=== PATIENT | male | born 1970 | race Caucasian/White ===

== ENCOUNTER 2016-07-17 21:27 | Emergency (ER) | payer OTHER ==
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
[2016-07-17 22:49] LABS: COLOR PALE YELLOW; LEUKOCYTE ESTERASE,URINE NEGATIVE (NEGATIVE); NITRITE,URINE NEGATIVE (NEGATIVE)
[2016-07-17 22:53] LABS: % IMMATURE GRANULYOCYTES 0.3 % (0.0-1.1); ABSOLUTE IMMATURE GRANULOCYTES 0.01 10^3/uL (0.00-0.10); ADD DIFF? NO; ADD MORPH? NO; ATYPICAL LYMPHOCYTE FLAG 30 (0-99); FRAGMENT RBC FLAG 0 (0-99); HEMOGLOBIN 11.6 g/dL (13.7-17.5); LEFT SHIFT FLG 0 (0-99); LIPEMIA HEMOLYSIS FLAG 90 (0-99); MEAN CELL HEMOGLOBIN 30.8 pg (27.9-34.1); MEAN CELL HEMOGLOBIN CONCENTR. 35.2 g/dL (32.4-36.7); MEAN CELL VOLUME 87.5 fL (81.5-99.8); MEAN PLATELET VOLUME 11.2 fL (8.7-11.7); PLATELET CLUMPS FLAG 20 (0-99); RED BLOOD CELL COUNT 3.77 10^6/uL (4.40-6.38); RED CELL DISTRIBUTION WIDTH 16.6 % (11.5-15.2)
[2016-07-17 22:55] LABS: PLATELET COUNT 43 10^3/uL (150-400)
[2016-07-17 22:59] LABS: APTT 37.2 SEC (23.0-38.0); INR 1.55 (0.83-1.16); PROTIME(PATIENT) 18.6 SEC (12.0-15.0)
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
[2016-07-17 23:03] LABS: ALANINE AMINOTRANSFERASE 29 IU/L (21-72); ALBUMIN 3.4 g/dL (3.5-5.0); ALKALINE PHOSPHATASE 83 IU/L (38-126); ANION GAP 9 mEq/L (8-16); ASPARTATE AMINOTRANSFERASE 39 IU/L (17-59); BILIRUBIN,TOTAL 1.8 mg/dL (0.1-1.4); CALCIUM 8.7 mg/dL (8.5-10.4); CARBON DIOXIDE 26 mEq/l (22-31); CHLORIDE 101 mEq/L (97-110); CREATININE 0.7 mg/dL (0.7-1.3); GLOMERULAR FILTRATION RATE > 60; GLUCOSE 97 mg/dL (70-100); POTASSIUM 3.9 mEq/L (3.5-5.2); SODIUM 136 mEq/L (134-144); TOTAL PROTEIN 6.9 g/dL (6.3-8.2)
[2016-07-17 23:27] LABS: ADD SCAN? NO
[2016-07-17 23:28] LABS: PLATELET ESTIMATE DECREASED (ADEQ)
[2016-07-17] MEDS ORDERED: FUROSEMIDE 40 MG/4 ML VIAL IVP ONE (23:38)
[2016-07-17] MEDS ORDERED: LORazepam 2 MG/ML INJ IVP ONE (23:39)
[2016-07-18 02:02] VITALS: BP 127/92; PULSE 60; RESP 12; TEMP 98.2; O2SAT 96
== END 2016-07-18 02:01 | disposition home or self-care (01) ==
DX: E87.70 Fluid overload, unspecified (principal); K72.90 Hepatic failure, unspecified without coma; F17.200 Nicotine dependence, unspecified, uncomplicated
CPT/HCPCS: 96374; J2060

== ENCOUNTER → 2016-09-28 | Outpatient (CLI) | payer OTHER ==
[~2016-09-28] MED LIST: IOPAMIDOL (ISOVUE-300) 100 ML BTL ONE
== END ==
LOC: FIMAGING 08:10
PROVIDERS: ATTEND Surgery
DX: L02.211 Cutaneous abscess of abdominal wall (principal)
CPT/HCPCS: Q9967

== ENCOUNTER 2016-12-07 17:29 | Emergency (ER) | payer OTHER ==
[2016-12-07 17:54] VITALS: RESP 16
--- NOTE | 2016-12-07 18:11 | EDPHY ---
General - History Smoking Status: Current every day smoker Time Seen by Provider: 12/07/16 17:53 Narrative: CHIEF COMPLAINT: Left simmons laceration HISTORY OF PRESENT ILLNESS: Patient was walking in his house when he tripped on a coffee table, slicing the left simmons. This was a moderately to severely painful laceration. This just happened within the past 2 hours. Difficulty walking on due to pain. There was a moderate amount of bleeding, which she attributes to his end-stage liver disease. No numbness or tingling distally. No injury elsewhere. Minimal improvement rest. Tetanus was last updated less than 5 years ago. No other associated complaints or modifying factors. Expresses concern as he has poor clotting factor due to cirrhosis. 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 Lives independently with his spouse FAMILY HISTORY: Noncontributory EXAMINATION General Appearance: Alert, no distress Head: normocephalic, atraumatic Eyes: Pupils equal and round, no conjunctival pallor. Scleral icterus ENT, Mouth: Mucous membranes moist Neck: Normal inspection, supple, non-tender Respiratory: No retractions or distress. Cardiovascular: Regular rate. Pulses intact distally. Symmetric DP and PT pulses 2+ Neurological: A&O, nonfocal. Strength symmetric Skin: Warm and dry, no rash. Chronic healing wound of the lower abdomen from a laparotomy incision. Extensive laceration to the left anterior simmons. This is 15 cm, curvilinear. Exposure of the anterior compartment without compromise of the fascia or muscle belly. No tendon injury. No foreign body. Neurovascular intact distally. Extremities: Tenderness over the area of laceration. Range of motion intact symmetrically without deficit. Neurovascular intact distal to the laceration. All compartments are soft. Psychiatric: Mood and affect normal DIFFERENTIAL DIAGNOSES: Including but not limited to laceration, complex laceration, coagulopathy MDM: 6:23 p.m. Left anterior simmons laceration from a coffee table. This is extensive laceration , measuring nearly 15 cm. There are exposure of the anterior compartment but no compromise. I have anesthetize the area. X-ray was ordered. Copious irrigation and closure. 7:50 p.m.. Extremely complicated laceration of the left anterior simmons. Two-layer closure without complication. No foreign body. No fracture. Neurovascular intact pre and postprocedure. No arterial injury. No tendon injury. Patient has complicated history due to his end-stage liver disease with delayed healing. He is already being seen a chronic, nonhealing wound of the abdomen by general surgeon. I stressed the importance of close follow up with either the general surgeon or his primary care physician to monitor the healing of this laceration given his scenario. He voices understanding of this. Additionally I will place him on Augmentin prophylaxis. I would like him to be followed closely with wound check in 48 hours. ED precautions discussed. Minimal weight- bearing on the left lower extremity. He is comfortable with this plan and discharged home stable condition with his spouse. PROCEDURE: Laceration repair Consent: Verbal Location: Left anterior simmons Length of repair: 15 cm Complexity: Complex, total suture time 60 minutes Layer involvement: 2 Layer Anesthesia: Local, 1% lidocaine with epinephrine, 15 mL Irrigation: Extensive Debridement: None Procedure description: Following good anesthesia, the wound was copiously irrigated. Wound bed was explored and there is no foreign body noted. Wound borders were approximated well with good hemostasis. Tolerated well without complication. Suture/Staple material: Subcutaneous layer: 8 simple interrupted sutures with 5-0 Vicryl. Dermal layer: 4-0 Prolene, 20 horizontal mattress sutures Wound care: Routine as discussed Suture/Staple removal: 10-14 Days SUPERVISION: This patient was independently evaluated without direct examination by the attending physician. Case was discussed with attending physician. (Jay Liz ) The patient was evaluated and managed by the physician assistant family teacher. I have reviewed this chart and I agree with the findings and plan of care as documented , as indicated by my signature. I am the secondary supervising physician. ( Hannah Chavez) - Objective Vital Signs: Initial Vital Signs Temperature (C) 36.8 C 12/07/16 17:35 Heart Rate 94 12/07/16 17:35 Respiratory Rate 16 12/07/16 17:35 Blood Pressure 110/82 H 12/07/16 17:35 O2 Sat (%) 94 12/07/16 17:35 O2 Delivery Mode Room Air Allergies/Adverse Reactions: bupropion HCl [From Wellbutrin] Allergy (Intermediate, Verified 12/07/16 17:32) Anxiety cefaclor [From Ceclor] Allergy (Intermediate, Verified 12/07/16 17:32) Hives Home Medications: Medication Instructions Recorded QUEtiapine FUMARATE [Seroquel 50 100 mg PO HS #30 tab 12/04/15 mg (*)] Rifaximin [Xifaxan] 550 mg PO BID #60 tab 12/04/15 Spironolactone [Aldactone 100 MG 100 mg PO DAILY #30 tab 12/04/15 (*)] Cyanocobalamin [Vitamin B12 1,000 mcg IM Q28D 12/15/15 1000MCG/ML (*)] Testosterone 1.25 g TP DAILY 12/15/15 Citalopram Hydrobromide [Celexa] 40 mg PO DAILY 02/15/16 Furosemide [Lasix 80 MG (*)] 80 mg PO DAILY 02/15/16 Gabapentin [Neurontin 300 MG (*)] 300 mg PO HS 02/15/16 Lactulose [Cephulac 20 gm/30 ml 10 gm PO DAILY 02/15/16 oral soln (*)] Potassium Cl [Klor-Con 10 meq (RX)] 10 meq PO DAILY 02/15/16 Varenicline Tartrate [Chantix 1MG 1 mg PO DAILY 02/15/16 (*)] Amoxicillin/Clavulanate Pot 875 mg PO BID #20 tab 12/07/16 [Augmentin 875 MG TAB (*)] Medications Given: Discontinued Medications Amoxicillin/Clavulanate Potassium (Augmentin 875mg) 875 mg PO EDNOW ONE PRN Reason: Protocol Stop: 12/07/16 20:03 Last Admin: 12/07/16 20:34 Dose: 875 mg Departure - Departure Disposition: Home, Routine, Self-Care Clinical Impression: Laceration of lower leg, complicated Condition: Good Instructions: Care For Your Stitches (ED), Laceration (ED) Additional Instructions: 1. Wound care as discussed daily 2. Wound check with primary care physician or general surgeon 48 hours 3. ED precautions as discussed 4. Augmentin as prescribed to completion Referrals: NOT,SURE [Other] - As per Instructions Sharifa Drummond MD [Medical Doctor] - As per Instructions Prescriptions: Amoxicillin/Clavulanate Pot [Augmentin 875 MG TAB (*)] 875 mg PO BID #20 tab
[2016-12-07] MEDS ORDERED: AMOXICILLIN/CLAVULANATE POT 875/125 MG TAB PO ONE (20:02)
[2016-12-07 20:35] VITALS: BP 110/69; PULSE 79; TEMP 98.4; O2SAT 95
== END 2016-12-07 20:30 | disposition home or self-care (01) ==
PROC: 0HQLXZZ Repair Left Lower Leg Skin, External Approach (ICD-10-PCS; principal; 2016-12-07)
DX: S81.812A Laceration without foreign body, left lower leg, initial encounter (principal); F17.200 Nicotine dependence, unspecified, uncomplicated; W18.49XA Other slipping, tripping and stumbling without falling, initial encounter; Y92.009 Unspecified place in unspecified non-institutional (private) residence as the place of occurrence of the external cause; Y99.8 Other external cause status; Y93.01 Activity, walking, marching and hiking

== ENCOUNTER 2016-12-14 19:54 | Inpatient (IN) | payer OTHER ==
[2016-12-14] MEDS ORDERED: VANCOMYCIN HCL/NORMAL SALINE 250 ML IV ONE (20:22)
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
[2016-12-14] MEDS ORDERED: IBUPROFEN 200 MG TAB PO PRN (21:26)
[2016-12-14] MEDS ORDERED: ACETAMINOPHEN 325 MG TAB PO PRN (21:26)
[2016-12-14] MEDS ORDERED: ONDANSETRON DISINTEGRATING 4 MG TAB PO PRN (21:26)
[2016-12-14] MEDS ORDERED: ONDANSETRON 4 MG/2 ML VIAL IVP PRN (21:26)
[2016-12-14 21:36] LABS: % IMMATURE GRANULYOCYTES 0.5 % (0.0-1.1); ABSOLUTE IMMATURE GRANULOCYTES 0.02 10^3/uL (0.00-0.10); ADD DIFF? NO; ADD MORPH? NO; ADD SCAN? NO; ATYPICAL LYMPHOCYTE FLAG 30 (0-99); FRAGMENT RBC FLAG 20 (0-99); HEMATOCRIT 33.9 % (40.0-51.0); HEMOGLOBIN 11.9 g/dL (13.7-17.5); LEFT SHIFT FLG 0 (0-99); LIPEMIA HEMOLYSIS FLAG 90 (0-99); MEAN CELL HEMOGLOBIN 30.4 pg (27.9-34.1); MEAN CELL HEMOGLOBIN CONCENTR. 35.1 g/dL (32.4-36.7); MEAN CELL VOLUME 86.5 fL (81.5-99.8); MEAN PLATELET VOLUME 10.1 fL (8.7-11.7); PLATELET CLUMPS FLAG 0 (0-99); PLATELET COUNT 53 10^3/uL (150-400); RED BLOOD CELL COUNT 3.92 10^6/uL (4.40-6.38); RED CELL DISTRIBUTION WIDTH 14.9 % (11.5-15.2)
[2016-12-14 21:45] LABS: ANION GAP 9 mEq/L (8-16); BILIRUBIN,TOTAL 1.4 mg/dL (0.1-1.4); CALCIUM 8.8 mg/dL (8.5-10.4); CARBON DIOXIDE 28 mEq/l (22-31); CHLORIDE 94 mEq/L (97-110); CREATININE 1.1 mg/dL (0.7-1.3); GLOMERULAR FILTRATION RATE > 60; GLUCOSE 97 mg/dL (70-100); INR 1.49 (0.83-1.16); POTASSIUM 4.2 mEq/L (3.5-5.2); SODIUM 131 mEq/L (134-144)
[2016-12-14 21:46] LABS: APTT 36.5 SEC (23.0-38.0)
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
[2016-12-15] MEDS: OXYCODONE/APAP 5/325 TAB PO PRN ×4 (00:09→14:16)
[2016-12-15 05:21] LABS: ADD DIFF? NO; ADD MORPH? NO; ADD SCAN? NO; ATYPICAL LYMPHOCYTE FLAG 40 (0-99); FRAGMENT RBC FLAG 0 (0-99); HEMATOCRIT 33.4 % (40.0-51.0); HEMOGLOBIN 11.6 g/dL (13.7-17.5); LEFT SHIFT FLG 0 (0-99); LIPEMIA HEMOLYSIS FLAG 90 (0-99); MEAN CELL HEMOGLOBIN 30.4 pg (27.9-34.1); MEAN CELL HEMOGLOBIN CONCENTR. 34.7 g/dL (32.4-36.7); MEAN CELL VOLUME 87.7 fL (81.5-99.8); MEAN PLATELET VOLUME 11.2 fL (8.7-11.7); PLATELET CLUMPS FLAG 0 (0-99); RED BLOOD CELL COUNT 3.81 10^6/uL (4.40-6.38); RED CELL DISTRIBUTION WIDTH 14.8 % (11.5-15.2)
[2016-12-15 05:26] LABS: PLATELET COUNT 42 10^3/uL (150-400)
[2016-12-15 06:07] LABS: PLATELET ESTIMATE DECREASED (ADEQ)
[2016-12-15] MEDS ORDERED: hydrOXYzine HCL 25 MG TAB PO PRN (07:46)
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
[2016-12-15] MEDS ORDERED: ENOXAPARIN 40 MG/0.4 ML SYR SC SCH (09:00)
[2016-12-15] MEDS: RIFAXIMIN 550 MG TAB PO SCH ×2 (10:23→20:52)
[2016-12-15] MEDS: VARENICLINE TARTRATE 1 MG TAB PO SCH (10:23)
[2016-12-15] MEDS: POTASSIUM CL 10 MEQ TAB PO SCH (10:23)
[2016-12-15] MEDS: GABAPENTIN 300 MG CAP PO SCH ×3 (10:23→20:52)
[2016-12-15] MEDS: FUROSEMIDE 40 MG TAB PO SCH (10:23)
[2016-12-15] MEDS: LACTULOSE 20 GM/30 ML UDCUP PO SCH (10:24)
[2016-12-15] MEDS: VANCOMYCIN 1.25 GM in D5W 250 ML IV SCH ×2 (10:24→21:05)
[2016-12-15] MEDS: TESTOSTERONE 1.25 GM TP SCH (12:47)
--- NOTE | 2016-12-15 18:19 | ASMTCASEMG ---
Living Arrangements What is your living Answers: With Spouse arrangement? Who do you live with? Discharge Plan Comments Coordination Status Comments Notes: Pt here w/cellulitis, hx of narcotic abuse, has current Suboxone prescription, PT/OT to [facility] w/f. Date Signed: 12/15/2016 06:18 PM Electronically Signed By:Shy Jolley
[2016-12-15] MEDS: SUBOXONE SL SCH (18:28)
[2016-12-15] MEDS ORDERED: QUEtiapine FUMARATE 50 MG TAB PO SCH (21:00)
[2016-12-15] MEDS ORDERED: CITALOPRAM 20 MG TAB PO SCH (21:00)
[2016-12-15] MEDS ORDERED: SPIRONOLACTONE 100 MG TAB PO SCH (21:00)
[2016-12-15] MEDS ORDERED: traZODone 50 MG TAB PO SCH (21:00)
[2016-12-16] MEDS: RIFAXIMIN 550 MG TAB PO SCH (08:07)
[2016-12-16] MEDS: FUROSEMIDE 40 MG TAB PO SCH (08:08)
[2016-12-16] MEDS: POTASSIUM CL 10 MEQ TAB PO SCH (08:08)
[2016-12-16] MEDS: LACTULOSE 20 GM/30 ML UDCUP PO SCH ×2 (08:08→08:49)
[2016-12-16] MEDS: GABAPENTIN 300 MG CAP PO SCH (08:08)
[2016-12-16] MEDS: VARENICLINE TARTRATE 1 MG TAB PO SCH (08:08)
[2016-12-16] MEDS: SUBOXONE SL SCH (08:15)
[2016-12-16] MEDS: TESTOSTERONE 1.25 GM TP SCH (08:49)
[2016-12-16] MEDS: VANCOMYCIN 1.25 GM in D5W 250 ML IV SCH (09:51)
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
--- NOTE | 2016-12-16 12:17 | ASDISCHSUM ---
Discharge Information Plan Status:Home with No Needs Medically Cleared to Leave: Discharge Date: CM D/C Disposition:Home, Routine, Self-Care ADT D/C Disposition: Projected Discharge Date: Transportation at D/C:Family Discharge Delay Reason: Follow-Up Date: Discharge Slot: Final Diagnosis: Placement Information Patient Contact Information Contact Name:DORIS Relationship: Address:[address] [place] [address] City:[place] Alternate Phone: State/Zip Code:[place] [address] Email: Financial Information Financial Class:HMO and PPO Plans Primary Plan Desc:[facility] Primary Plan Number:[id number] Secondary Plan Desc:MEDICARE INPATIENT Secondary Plan Number:[id number] Assessment Information [facility] Initial CM Assessment Living Arrangements What is your living Answers: With Spouse arrangement? Who do you live with? Discharge Plan Comments Coordination Status Comments Notes: Pt here w/cellulitis, hx of narcotic abuse, has current Suboxone prescription, PT/OT to [facility] w/f. Date Signed: 12/15/2016 06:18 PM Electronically Signed By:Shy Jolley Intervention Information
--- NOTE | 2016-12-16 12:18 | ASMTCMCOM ---
CM Note CM Note Notes: Pt. to d/c independently to his [facility] today at 14:00. SWer let hospitalist and bedside RN know. Date Signed: 12/16/2016 12:18 PM Electronically Signed By:Natalie Johnson
[2016-12-16 12:36] VITALS: BP 96/61; PULSE 73; RESP 18; TEMP 97.8; O2SAT 93
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
[2016-12-16] MEDS ORDERED: VANCOMYCIN HCL/NORMAL SALINE 250 ML IV SCH (21:00)
== END 2016-12-16 14:27 | disposition home or self-care (01) | DRG 872 ==
LOC: OBSVTOIN 20:43 → F3E 21:41
PROVIDERS: ADMIT Hospitalist; ATTEND Student in an Organized Health Care Education/Training Program
DX: A41.9 Sepsis, unspecified organism (principal); L03.116 Cellulitis of left lower limb; D69.59 Other secondary thrombocytopenia; S81.812D Laceration without foreign body, left lower leg, subsequent encounter; K70.30 Alcoholic cirrhosis of liver without ascites; F11.20 Opioid dependence, uncomplicated; G89.29 Other chronic pain; F17.210 Nicotine dependence, cigarettes, uncomplicated; K72.90 Hepatic failure, unspecified without coma; F10.21 Alcohol dependence, in remission; W22.03XD Walked into furniture, subsequent encounter; Z87.828 Personal history of other (healed) physical injury and trauma
CPT/HCPCS: 97161-GP; 97166-GO; G8978-GP-CI; G8979-GP-CI; G8980-GP-CI; G8987-GO-CI; G8988-GO-CI; G8989-GO-CI; J1650; J3370

== ENCOUNTER → 2017-01-25 | Outpatient (CLI) | payer OTHER | LOC: FIMAGING 07:46 | PROVIDERS: ATTEND Surgery | DX: L02.211 Cutaneous abscess of abdominal wall (principal); K74.60 Unspecified cirrhosis of liver; K80.20 Calculus of gallbladder without cholecystitis without obstruction | CPT/HCPCS: Q9967 ==

== ENCOUNTER → 2017-03-02 | Outpatient (CLI) | payer OTHER ==
[~2017-03-02] MED LIST changes: +IOPAMIDOL (ISOVUE 370) 100 ML BTL IV ONE; -IOPAMIDOL (ISOVUE-300) 100 ML BTL ONE
== END ==
LOC: FIMAGING 13:03
PROVIDERS: ATTEND Surgery
DX: K63.2 Fistula of intestine (principal)
CPT/HCPCS: 76000; Q9967

== ENCOUNTER 2017-03-12 17:18 | Inpatient (IN) | payer OTHER ==
[2017-03-12] MEDS ORDERED: ONDANSETRON 4 MG/2 ML VIAL IVP PRN (19:06)
[2017-03-12 20:15] LABS: INR 1.44 (0.83-1.16); PROTIME(PATIENT) 17.5 SEC (12.0-15.0)
[2017-03-12 20:16] LABS: APTT 38.7 SEC (23.0-38.0)
[2017-03-12 20:26] LABS: % IMMATURE GRANULYOCYTES 0.3 % (0.0-1.1); ABSOLUTE IMMATURE GRANULOCYTES 0.01 10^3/uL (0.00-0.10); ADD DIFF? NO; ADD MORPH? NO; ADD SCAN? NO; ATYPICAL LYMPHOCYTE FLAG 10 (0-99); FRAGMENT RBC FLAG 0 (0-99); HEMATOCRIT 31.9 % (40.0-51.0); HEMOGLOBIN 11.7 g/dL (13.7-17.5); LEFT SHIFT FLG 0 (0-99); LIPEMIA HEMOLYSIS FLAG 90 (0-99); MEAN CELL HEMOGLOBIN 31.2 pg (27.9-34.1); MEAN CELL HEMOGLOBIN CONCENTR. 36.7 g/dL (32.4-36.7); MEAN CELL VOLUME 85.1 fL (81.5-99.8); MEAN PLATELET VOLUME 11.4 fL (8.7-11.7); PLATELET CLUMPS FLAG 0 (0-99); RED BLOOD CELL COUNT 3.75 10^6/uL (4.40-6.38); RED CELL DISTRIBUTION WIDTH 15.4 % (11.5-15.2)
[2017-03-12 20:30] LABS: PLATELET COUNT 46 10^3/uL (150-400)
[2017-03-12 20:35] LABS: ALANINE AMINOTRANSFERASE 32 IU/L (21-72); ALBUMIN 2.9 g/dL (3.5-5.0); ALKALINE PHOSPHATASE 84 IU/L (38-126); ANION GAP 9 mEq/L (8-16); ASPARTATE AMINOTRANSFERASE 44 IU/L (17-59); BILIRUBIN,TOTAL 0.9 mg/dL (0.1-1.4); CALCIUM 8.5 mg/dL (8.5-10.4); CARBON DIOXIDE 26 mEq/l (22-31); CHLORIDE 97 mEq/L (97-110); GLOMERULAR FILTRATION RATE > 60; GLUCOSE 101 mg/dL (70-100); SODIUM 132 mEq/L (134-144); TOTAL PROTEIN 5.9 g/dL (6.3-8.2)
[2017-03-12] MEDS: ERTAPENEM 1 GM VIAL IVP SCH (20:54)
[2017-03-12] MEDS: D5W 1/2 NS W/ 20 KCl/L 1,000 ML IV SCH (20:54)
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
[2017-03-12 21:03] LABS: PLATELET ESTIMATE DECREASED (ADEQ)
[2017-03-12 22:28] LABS: PHENCYCLIDINE URINE BCH < 6 ng/ml (NEGATIVE); PHENCYCLIDINE URINE BCH NEGATIVE (NEGATIVE)
[2017-03-13 02:34] LABS: TETRAHYDROCANNABINOL URINE 201 ng/mL (NEGATIVE)
[2017-03-13] MEDS: HYDROmorphONE/DILAUDID 1 MG/ML INJ IVP PRN ×6 (04:44→23:55)
[2017-03-13] MEDS: D5W 1/2 NS W/ 20 KCl/L 1,000 ML IV SCH ×2 (07:50→23:55)
[2017-03-13] MEDS: ERTAPENEM 1 GM VIAL IVP SCH (09:04)
[2017-03-13] MEDS ORDERED: FLU VACC QS 2017-18 (3YR+)/PF 0.5 ML SYR (FLUARIX QUAD) IM ONE (10:09)
[2017-03-13] MEDS ORDERED: PNEUMOCOCCAL 0.5ML VACCINE VIAL IM ONE (10:09)
--- NOTE | 2017-03-13 12:14 | ASMTCMCOM ---
CM Note CM Note Notes: Chart reviewed. Patient admitted per Dr. Knight for abdominal drainage that is persistent . He was inpatient here in December and DC'd to home independently at that time. Questionable need for surgery. Needs to be determined as plan of care is not clear at this point. CM to follow. Date Signed: 03/13/2017 12:14 PM Electronically Signed By:Jovanna Betancourt RN
[2017-03-13] MEDS ORDERED: IOPAMIDOL (ISOVUE-300) 100 ML BTL ONE (13:26)
[2017-03-13] MEDS ORDERED: NICOTINE 21 MG/24 HR PATCH TD ONE (20:30)
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
[2017-03-14] MEDS: HYDROmorphONE/DILAUDID 1 MG/ML INJ IVP PRN ×2 (04:10→08:22)
[2017-03-14] MEDS: ERTAPENEM 1 GM VIAL IVP SCH (08:24)
[2017-03-14 08:29] VITALS: BP 106/65; PULSE 65; RESP 16; TEMP 97.9; O2SAT 93
[2017-03-14] MEDS ORDERED: IBUPROFEN 200 MG TAB PO PRN (09:29)
[2017-03-14] MEDS ORDERED: hydrOXYzine HCL 25 MG TAB PO PRN (09:29)
[2017-03-14] MEDS ORDERED: NICOTINE 21 MG/24 HR PATCH TD SCH (09:45)
--- NOTE | 2017-03-14 15:56 | ASDISCHSUM ---
Discharge Information Plan Status:Home with No Needs Medically Cleared to Leave:03/13/2017 Discharge Date:03/14/2017 02:07 PM D/C Disposition: ADT D/C Disposition:Home, Routine, Self-Care Projected Discharge Date:03/14/2017 12:00 AM Transportation at D/C: Discharge Delay Reason: Follow-Up Date:03/14/2017 12:00 AM Discharge Slot: Final Diagnosis: Placement Information Patient Contact Information Contact Name:DORIS Relationship: Address:[address] [place] [address] City:[place] Alternate Phone: [facility]/Zip Code:[place] [address] Email: Financial Information Financial Class: Primary Plan Desc:MEDICARE INPATIENT Primary Plan Number:[id number] Secondary Plan Desc:[facility] Secondary Plan Number:[id number] Assessment Information [facility] CM Progress Note CM Note CM Note Notes: Chart reviewed. Patient admitted per Dr. Knight for abdominal drainage that is persistent . He was inpatient here in December and DC'd to home independently at that time. Questionable need for surgery. Needs to be determined as plan of care is not clear at this point. CM to follow. Date Signed: 03/13/2017 12:14 PM Electronically Signed By:Jovanna Betancourt RN LACE LACE Length of stay for Answers: 1 day current admission Acuity / Level of Care Answers: No. Emergency dept visits in Answers: 1 last 6 months Score: 2 Date Signed: 03/13/2017 12:15 PM Electronically Signed By:Jovanna Betancourt RN Intervention Information Intervention Type:*JERNIGAN-Signed Date of Service:03/13/2017 01:15 PM Patient Type:Observation Staff Member:Sabine Nagy Hours: Discipline: Severity: Comment:
[2017-03-14] MEDS ORDERED: GABAPENTIN 300 MG CAP PO SCH (16:00)
[2017-03-14] MEDS ORDERED: BACLOFEN 10 MG TAB PO SCH (16:00)
[2017-03-14] MEDS ORDERED: SPIRONOLACTONE 100 MG TAB PO SCH (21:00)
[2017-03-14] MEDS ORDERED: traZODone 50 MG TAB PO SCH (21:00)
[2017-03-14] MEDS ORDERED: RIFAXIMIN 550 MG TAB PO SCH (21:00)
[2017-03-14] MEDS ORDERED: QUEtiapine FUMARATE 50 MG TAB PO SCH (21:00)
[2017-03-14] MEDS ORDERED: METHYLPHENIDATE HCL 30 MG PO SCH (21:00)
[2017-03-14] MEDS ORDERED: DULoxetine 60 MG CAP PO SCH (21:00)
[2017-03-15] MEDS ORDERED: LACTULOSE 20 GM/30 ML UDCUP PO SCH (09:00)
[2017-03-15] MEDS ORDERED: TESTOSTERONE 1.25 GM TP SCH (09:00)
[2017-03-15] MEDS ORDERED: POTASSIUM CL 10 MEQ TAB PO SCH (09:00)
[2017-03-15] MEDS ORDERED: FUROSEMIDE 40 MG TAB PO SCH (09:00)
== END 2017-03-14 14:07 | disposition home or self-care (01) | DRG 395 ==
LOC: F3E 17:22 → OBSVTOIN 03-14 09:06
PROVIDERS: ADMIT Surgery; ATTEND Surgery
DX: K63.2 Fistula of intestine (principal); K74.60 Unspecified cirrhosis of liver; Z23 Encounter for immunization
CPT/HCPCS: 80307; G0008; G0378; G0379; G0480; J1170; J1335; Q9967

== ENCOUNTER 2017-03-22 09:00 | Inpatient (IN) | payer OTHER ==
--- NOTE | 2017-03-22 06:49 | PDHPUP ---
History & Physical Update H&P update statement: This history and physical update is based on an assessment of the patient which was completed after admission or registration (within 24 hours), but prior to the surgery/procedure. updated
[~2017-03-22 09:00] MED LIST changes: +ERTAPENEM 1 GM VIAL IVP ONE; -IOPAMIDOL (ISOVUE 370) 100 ML BTL IV ONE
[2017-03-26] MEDS ORDERED: ERTAPENEM 1 GM VIAL IVP ONE ×2 (06:00→12:45)
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
[2017-03-26] MEDS ORDERED: HEPARIN 1000 UNIT/1 ML MDV ONE (11:31)
[2017-03-26] MEDS ORDERED: ceFAZolin 1 GM/5 ML SYR ONE (11:31)
[2017-03-26] MEDS ORDERED: BUPIVACAINE 0.5% 30 ML SDV ONE (11:31)
[2017-03-26] MEDS ORDERED: LIDOCAINE 1% 2 ML INJ ID PRN (12:28)
[2017-03-26] MEDS ORDERED: LR 1,000 ML IV ONE (12:28)
[2017-03-26] MEDS ORDERED: LIDOCAINE 1% 2 ML INJ ONE (12:34)
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
[2017-03-26] MEDS ORDERED: MIDAZOLAM 2 MG/2 ML VIAL IVP ONE (13:20)
[2017-03-26] MEDS ORDERED: MIDAZOLAM 2 MG/2 ML VIAL ONE (13:22)
[2017-03-26 13:23] LABS: INR 1.27 (0.83-1.16); PROTIME(PATIENT) 16.1 SEC (12.0-15.0)
[2017-03-26 13:24] LABS: APTT 33.8 SEC (23.0-38.0)
[2017-03-26] MEDS ORDERED: PROPOFOL 200 MG/20 ML VIAL ONE ×2 (13:24→14:32)
[2017-03-26] MEDS ORDERED: fentaNYL 250 MCG/5 ML INJ ONE (13:24)
[2017-03-26] MEDS ORDERED: ROCURONIUM 50 MG/5 ML VIAL ONE ×2 (13:26→14:19)
[2017-03-26] MEDS ORDERED: LIDOCAINE 2% 100 MG/5 ML SYR ONE (13:30)
[2017-03-26] MEDS ORDERED: HYDROmorphONE/DILAUDID 2 MG/ML INJ ONE (14:24)
[2017-03-26] MEDS ORDERED: KETAMINE 100 MG/10 ML SYR ONE (14:28)
[2017-03-26] MEDS ORDERED: ESMOLOL HCL 100 MG/10 ML VIAL IV ONE (14:28)
[2017-03-26] MEDS ORDERED: DEXAMETHASONE 4 MG/ML VIAL ONE (14:32)
[2017-03-26] MEDS ORDERED: SUGAMMADEX SODIUM 200 MG/2 ML VIAL IVP ONE (14:33)
[2017-03-26] MEDS ORDERED: ONDANSETRON 4 MG/2 ML VIAL ONE (14:33)
[2017-03-26] MEDS ORDERED: ONDANSETRON 4 MG/2 ML VIAL IVP PRN ×2 (16:28→18:04)
[2017-03-26] MEDS ORDERED: HYDROCODONE/APAP 5/325 TAB PO PRN (16:28)
[2017-03-26] MEDS ORDERED: PROMETHAZINE HCL 25 MG/ML INJ IVP PRN (16:28)
[2017-03-26] MEDS ORDERED: NALOXONE HCL 0.4 MG/ML INJ IVP PRN (16:28)
[2017-03-26] MEDS ORDERED: METOCLOPRAMIDE 10 MG/2 ML VIAL IVP PRN ×2 (16:28→18:04)
[2017-03-26] MEDS ORDERED: ALBUTEROL 3 ML DEYVIAL IH PRN (16:28)
[2017-03-26] MEDS ORDERED: OXYCODONE/APAP 5/325 TAB PO PRN (16:28)
[2017-03-26] MEDS ORDERED: LR 500 ML IV PRN (16:28)
[2017-03-26] MEDS ORDERED: ACETAMINOPHEN 500 MG TAB PO PRN (16:28)
--- NOTE | 2017-03-26 17:08 | POSTANESTH ---
Post Anesthetic Evaluation Cardiovascular Status: Normal, Stable Respiratory Status: Normal, Stable Level of Consciousness/Mental Status: Can Participate in Eval Pain Control: Adequate, Prn Tx Ordered Nausea/Vomiting Control: Adequate, Prn Tx Ordered Complications Possibly Related to Anesthesia: None Noted
[2017-03-26] MEDS ORDERED: HYDROmorphONE/DILAUDID 1 MG/ML INJ ONE (17:18)
[2017-03-26] MEDS ORDERED: fentaNYL 100 MCG/2 ML INJ ONE (17:19)
[2017-03-26] MEDS: fentaNYL 100 MCG/2 ML INJ IVP PRN ×2 (17:20→17:31)
[2017-03-26] MEDS: HYDROmorphONE/DILAUDID 1 MG/ML INJ IVP PRN ×2 (17:20→17:32)
[2017-03-26] MEDS ORDERED: hydrOXYzine HCL 25 MG TAB PO PRN (18:09)
[2017-03-26] MEDS: NICOTINE 21 MG/24 HR PATCH TD SCH (19:20)
[2017-03-26] MEDS: NS W/ 20 KCl/L 1,000 ML IV SCH ×2 (19:34→23:50)
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
--- NOTE | 2017-03-26 21:34 | POSTOPPROG ---
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
[2017-03-26] MEDS: GABAPENTIN 300 MG CAP PO SCH (22:08)
[2017-03-26] MEDS: BACLOFEN 10 MG TAB PO SCH (22:08)
[2017-03-26] MEDS: traZODone 50 MG TAB PO SCH (22:08)
[2017-03-26] MEDS: SPIRONOLACTONE 100 MG TAB PO SCH (22:08)
[2017-03-26] MEDS: RIFAXIMIN 550 MG TAB PO SCH (22:09)
[2017-03-26] MEDS: QUEtiapine FUMARATE 100 MG TAB PO SCH (22:09)
[2017-03-26] MEDS: DULoxetine 60 MG CAP PO SCH (22:09)
[2017-03-26] MEDS: KETOROLAC 15 MG/1 ML SDV IVP SCH (23:50)
[2017-03-27 06:26] LABS: ANION GAP 8 mEq/L (8-16); CALCIUM 8.2 mg/dL (8.5-10.4); CARBON DIOXIDE 23 mEq/l (22-31); CHLORIDE 110 mEq/L (97-110); CREATININE 0.8 mg/dL (0.7-1.3); GLOMERULAR FILTRATION RATE > 60; GLUCOSE 124 mg/dL (70-100); SODIUM 141 mEq/L (134-144)
[2017-03-27 06:31] LABS: HEMATOCRIT 29.1 % (40.0-51.0); HEMOGLOBIN 10.1 g/dL (13.7-17.5)
[2017-03-27] MEDS: ERTAPENEM 1 GM VIAL IVP SCH (09:20)
[2017-03-27] MEDS: POTASSIUM CL 10 MEQ TAB PO SCH (09:26)
[2017-03-27] MEDS: GABAPENTIN 300 MG CAP PO SCH ×3 (09:28→21:00)
[2017-03-27] MEDS: BACLOFEN 10 MG TAB PO SCH ×3 (09:28→21:00)
[2017-03-27] MEDS: RIFAXIMIN 550 MG TAB PO SCH ×2 (09:28→21:01)
[2017-03-27] MEDS: NICOTINE 21 MG/24 HR PATCH TD SCH (09:29)
[2017-03-27] MEDS: LACTULOSE 20 GM/30 ML UDCUP PO SCH (09:29)
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
--- NOTE | 2017-03-27 11:34 | ASMTCASEMG ---
Living Arrangements What is your living Answers: With Spouse arrangement? Who do you live with? Type Of Residence What kind of residence do Answers: House you live in? Discharge Plan Comments Coordination Status Comments Notes: Pt is a 46 y/o man admitted for chronic abdominal would cellulitis. Anticipates that pt will d/c independent when medically stable w/ supportive . No therapies ordered at this time. CM available for changes. Plan: Independent Date Signed: 03/27/2017 11:33 AM Electronically Signed By:ERIC Lama
[2017-03-27] MEDS: TESTOSTERONE 1.25 GM TP SCH (12:26)
[2017-03-27] MEDS: KETOROLAC 15 MG/1 ML SDV IVP SCH ×4 (12:26→23:21)
[2017-03-27] MEDS: NS W/ 20 KCl/L 1,000 ML IV SCH (12:32)
[2017-03-27] MEDS: FUROSEMIDE 40 MG TAB PO SCH (12:35)
[2017-03-27] MEDS: DULoxetine 60 MG CAP PO SCH (21:00)
[2017-03-27] MEDS: QUEtiapine FUMARATE 100 MG TAB PO SCH (21:01)
[2017-03-27] MEDS: traZODone 50 MG TAB PO SCH (21:01)
[2017-03-27] MEDS: SPIRONOLACTONE 100 MG TAB PO SCH (21:01)
[2017-03-28] MEDS: KETOROLAC 15 MG/1 ML SDV IVP SCH ×3 (01:35→16:21)
[2017-03-28] MEDS ORDERED: ENOXAPARIN 40 MG/0.4 ML SYR SC SCH (09:00)
[2017-03-28 09:08] LABS: HEMATOCRIT 25.9 % (40.0-51.0); HEMOGLOBIN 9.2 g/dL (13.7-17.5); LIPEMIA HEMOLYSIS FLAG 90 (0-99); MEAN CELL HEMOGLOBIN 31.3 pg (27.9-34.1); MEAN CELL HEMOGLOBIN CONCENTR. 35.5 g/dL (32.4-36.7); MEAN CELL VOLUME 88.1 fL (81.5-99.8); PLATELET CLUMPS FLAG 0 (0-99); RED BLOOD CELL COUNT 2.94 10^6/uL (4.40-6.38)
[2017-03-28 09:19] LABS: PLATELET COUNT 34 10^3/uL (150-400)
[2017-03-28 09:57] LABS: PLATELET ESTIMATE DECREASED (ADEQ)
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
[2017-03-28] MEDS: TESTOSTERONE 1.25 GM TP SCH (10:41)
[2017-03-28] MEDS: FUROSEMIDE 40 MG TAB PO SCH (11:12)
[2017-03-28] MEDS: RIFAXIMIN 550 MG TAB PO SCH ×2 (11:12→22:24)
[2017-03-28] MEDS: POTASSIUM CL 10 MEQ TAB PO SCH (11:13)
[2017-03-28] MEDS: GABAPENTIN 300 MG CAP PO SCH ×3 (11:13→22:25)
[2017-03-28] MEDS: BACLOFEN 10 MG TAB PO SCH ×3 (11:14→22:24)
[2017-03-28] MEDS: ERTAPENEM 1 GM VIAL IVP SCH (11:14)
[2017-03-28] MEDS: LACTULOSE 20 GM/30 ML UDCUP PO SCH (11:21)
[2017-03-28] MEDS: NICOTINE 21 MG/24 HR PATCH TD SCH (11:21)
[2017-03-28] MEDS: oxyCODONE IR 5 MG TAB PO PRN ×2 (16:17→23:08)
--- NOTE | 2017-03-28 17:22 | ASMTCMCOM ---
KARLO Note CM Note Notes: Spoke w/pt, he requested community resources for food, sleep study and home care. KARLO gave pt [employer] and a packet of resources through [facility]. 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 KARLO w/f Date Signed: 03/28/2017 05:21 PM Electronically Signed By:Shy Jolley RN
[2017-03-28] MEDS: traZODone 50 MG TAB PO SCH (22:24)
[2017-03-28] MEDS: DULoxetine 60 MG CAP PO SCH (22:24)
[2017-03-28] MEDS: QUEtiapine FUMARATE 100 MG TAB PO SCH (22:25)
[2017-03-28] MEDS: SPIRONOLACTONE 100 MG TAB PO SCH (22:25)
[2017-03-29 05:41] LABS: ALANINE AMINOTRANSFERASE 33 IU/L (21-72); ALBUMIN 2.8 g/dL (3.5-5.0); ALKALINE PHOSPHATASE 89 IU/L (38-126); ANION GAP 11 mEq/L (8-16); ASPARTATE AMINOTRANSFERASE 42 IU/L (17-59); BILIRUBIN,TOTAL 0.9 mg/dL (0.1-1.4); CALCIUM 8.5 mg/dL (8.5-10.4); CARBON DIOXIDE 26 mEq/l (22-31); CHLORIDE 105 mEq/L (97-110); CREATININE 0.9 mg/dL (0.7-1.3); GLOMERULAR FILTRATION RATE > 60; GLUCOSE 122 mg/dL (70-100); POTASSIUM 4.8 mEq/L (3.5-5.2); SODIUM 142 mEq/L (134-144); TOTAL PROTEIN 5.8 g/dL (6.3-8.2)
[2017-03-29 05:51] LABS: % IMMATURE GRANULYOCYTES 1.1 % (0.0-1.1); ABSOLUTE IMMATURE GRANULOCYTES 0.04 10^3/uL (0.00-0.10); ABSOLUTE NRBC COUNT 0.02 10^3/uL (0-0.01); ADD DIFF? NO; ADD MORPH? NO; ADD SCAN? NO; ATYPICAL LYMPHOCYTE FLAG 30 (0-99); FRAGMENT RBC FLAG 0 (0-99); HEMATOCRIT 31.3 % (40.0-51.0); LEFT SHIFT FLG 0 (0-99); LIPEMIA HEMOLYSIS FLAG 90 (0-99); MEAN CELL HEMOGLOBIN 31.3 pg (27.9-34.1); MEAN CELL HEMOGLOBIN CONCENTR. 35.1 g/dL (32.4-36.7); MEAN CELL VOLUME 88.9 fL (81.5-99.8); MEAN PLATELET VOLUME 10.9 fL (8.7-11.7); NRBC-AUTO% 0.5 % (0.0-0.2); PLATELET CLUMPS FLAG 0 (0-99); PLATELET COUNT 50 10^3/uL (150-400); RED BLOOD CELL COUNT 3.52 10^6/uL (4.40-6.38); RED CELL DISTRIBUTION WIDTH 16.3 % (11.5-15.2)
[2017-03-29] MEDS: ERTAPENEM 1 GM VIAL IVP SCH (09:01)
[2017-03-29] MEDS: FUROSEMIDE 40 MG TAB PO SCH (10:00)
[2017-03-29] MEDS: POTASSIUM CL 10 MEQ TAB PO SCH (10:00)
[2017-03-29] MEDS: BACLOFEN 10 MG TAB PO SCH (10:00)
[2017-03-29] MEDS: GABAPENTIN 300 MG CAP PO SCH (10:00)
[2017-03-29] MEDS: RIFAXIMIN 550 MG TAB PO SCH (10:00)
[2017-03-29] MEDS: LACTULOSE 20 GM/30 ML UDCUP PO SCH (11:13)
[2017-03-29] MEDS: NICOTINE 21 MG/24 HR PATCH TD SCH (11:14)
[2017-03-29] MEDS ORDERED: AMOXICILLIN/CLAVULANATE POT 875/125 MG TAB PO SCH (11:15)
[2017-03-29] MEDS: TESTOSTERONE 1.25 GM TP SCH (11:15)
[2017-03-29 11:43] VITALS: BP 103/60; PULSE 99; RESP 20; TEMP 97.1; O2SAT 93
--- NOTE | 2017-03-29 13:29 | PDIAF ---
- Diagnosis Diagnosis: s/p abdomen fistula surgery Code Status: Full Code - Medication Management Discharge Medications: Medications to Continue on Transfer QUEtiapine FUMARATE [Seroquel 50 mg (*)] 100 mg PO HS #30 tab 12/04/15 [Last Taken 03/25/17] Rifaximin [Xifaxan] 550 mg PO BID #60 tab 12/04/15 [Last Taken 03/24/17] Testosterone 1.25 g TP DAILY 12/15/15 [Last Taken 03/12/17] Gabapentin [Neurontin 300 MG (*)] 300 mg PO TID 02/15/16 [Last Taken 03/24/17] Lactulose [Cephulac 20 gm/30 ml oral soln (*)] 10 gm PO DAILY 02/15/16 [Last Taken 03/24/17] Potassium Cl [Klor-Con 10 meq (RX)] 10 meq PO DAILY 02/15/16 [Last Taken ] Varenicline Tartrate [Chantix 1MG (*)] 1 mg PO BID 02/15/16 [Last Taken 03/24/17 ] Furosemide [Lasix 40 MG (*)] 80 mg PO DAILY 12/14/16 [Last Taken 03/24/17] Spironolactone [Aldactone 100 MG (*)] 100 mg PO HS 12/14/16 [Last Taken 03/24/17 ] hydrOXYzine HCL [hydrOXYzine HCL (RX)] 25 - 50 mg PO HS PRN 12/14/16 [Last Taken 03/24/17] traZODone [traZODONE 50MG (*)] 50 - 100 mg PO HS 12/14/16 [Last Taken 03/23/17] Buprenorphine HCl/Naloxone HCl [Suboxone 8 mg-2 mg SL Film] 1 film SL BID [Last Taken 03/24/17] Ibuprofen [Motrin (*)] 600 mg PO Q4HRS PRN #0 tab 12/16/16 [Last Taken 03/11/17] Baclofen [Baclofen 10 mg (*)] 10 mg PO TID 03/12/17 [Last Taken 03/24/17] Duloxetine HCl 60 mg PO HS 03/12/17 [Last Taken 03/24/17] Methylphenidate HCl [Methylphenidate HCl ER] 30 mg PO BID 03/12/17 [Last Taken 03/11/17] Amoxicillin/Clavulanate Pot [Augmentin 875 MG TAB (*)] 875 mg PO BID #14 tab [Last Taken Unknown] Nicotine [Nicoderm Cq 21 mg (*)] 21 mg TD DAILY patch 03/29/17 [Last Taken Unknown] oxyCODONE IR [Oxycodone Ir (*)] 10 mg PO Q4HRS PRN #30 tab 03/29/17 [Last Taken Unknown] Discharge Medications: Refer to the Discharge Home Medication list for PRN reason. - Orders Services needed: Home Care, Registered Nurse Home Care Face to Face: I certify that this patient was under my care and that I had the required [id number] encounter meeting the encounter requirements on the discharge day. My findings support the fact that the patient is homebound as defined in Home Care Face to Face Continued: CMS Chapter 7 Medicare Benefits Manual 30.1.1 , The condition of the patient is such that there exists a normal inability to leave home and consequently, leaving home would require a considerable and taxing effort. Isolation Type: None Diet Recommendation: no restrictions on diet Diet Texture: Regular Texture Diet Wound Care Instructions: Ok to change dressing as needed, in the least once daily, ok for patient and ot change at night if needed. - Follow Up Care Current Providers and Referrals: NONE *PRIMARY CARE P,. [Primary Care Provider] -
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
--- NOTE | 2017-03-29 14:11 | PDIAF ---
- Diagnosis Diagnosis: s/p abdomen fistula surgery Code Status: Full Code - Medication Management Discharge Medications: Medications to Continue on Transfer QUEtiapine FUMARATE [Seroquel 50 mg (*)] 100 mg PO HS #30 tab 12/04/15 [Last Taken 03/25/17] Rifaximin [Xifaxan] 550 mg PO BID #60 tab 12/04/15 [Last Taken 03/24/17] Testosterone 1.25 g TP DAILY 12/15/15 [Last Taken 03/12/17] Gabapentin [Neurontin 300 MG (*)] 300 mg PO TID 02/15/16 [Last Taken 03/24/17] Lactulose [Cephulac 20 gm/30 ml oral soln (*)] 10 gm PO DAILY 02/15/16 [Last Taken 03/24/17] Potassium Cl [Klor-Con 10 meq (RX)] 10 meq PO DAILY 02/15/16 [Last Taken ] Varenicline Tartrate [Chantix 1MG (*)] 1 mg PO BID 02/15/16 [Last Taken 03/24/17 ] Furosemide [Lasix 40 MG (*)] 80 mg PO DAILY 12/14/16 [Last Taken 03/24/17] Spironolactone [Aldactone 100 MG (*)] 100 mg PO HS 12/14/16 [Last Taken 03/24/17 ] hydrOXYzine HCL [hydrOXYzine HCL (RX)] 25 - 50 mg PO HS PRN 12/14/16 [Last Taken 03/24/17] traZODone [traZODONE 50MG (*)] 50 - 100 mg PO HS 12/14/16 [Last Taken 03/23/17] Buprenorphine HCl/Naloxone HCl [Suboxone 8 mg-2 mg SL Film] 1 film SL BID [Last Taken 03/24/17] Ibuprofen [Motrin (*)] 600 mg PO Q4HRS PRN #0 tab 12/16/16 [Last Taken 03/11/17] Baclofen [Baclofen 10 mg (*)] 10 mg PO TID 03/12/17 [Last Taken 03/24/17] Duloxetine HCl 60 mg PO HS 03/12/17 [Last Taken 03/24/17] Methylphenidate HCl [Methylphenidate HCl ER] 30 mg PO BID 03/12/17 [Last Taken 03/11/17] Amoxicillin/Clavulanate Pot [Augmentin 875 MG TAB (*)] 875 mg PO BID #14 tab [Last Taken Unknown] Nicotine [Nicoderm Cq 21 mg (*)] 21 mg TD DAILY patch 03/29/17 [Last Taken Unknown] oxyCODONE IR [Oxycodone Ir (*)] 10 mg PO Q4HRS PRN #30 tab 03/29/17 [Last Taken Unknown] Discharge Medications: Refer to the Discharge Home Medication list for PRN reason. - Orders Services needed: Home Care, Registered Nurse, Master Tanning Consultant Home Care Face to Face: I certify that this patient was under my care and that I had the required [id number] encounter meeting the encounter requirements on the discharge day. My findings support the fact that the patient is homebound as defined in Home Care Face to Face Continued: CMS Chapter 7 Medicare Benefits Manual 30.1.1 , The condition of the patient is such that there exists a normal inability to leave home and consequently, leaving home would require a considerable and taxing effort. Isolation Type: None Diet Recommendation: no restrictions on diet Diet Texture: Regular Texture Diet Wound Care Instructions: Ok to change outer dressing (gauze) as needed, in the least once daily, ok for patient and to change at night if needed. Once daily the packing inside the wound should be changed, try to leave drain in place, if falls out ok to push back in. - Follow Up Care Current Providers and Referrals: NONE *PRIMARY CARE P,. [Primary Care Provider] -
--- NOTE | 2017-03-29 14:42 | ASMTCMCOM ---
CM Note CM Note Notes: Spoke w/pt re; dc poc. Pt will dc home with [facility] homecare (RN/SW). Advised pt to make appt w/th pcp regarding a sleep study eval. CM called [facility] and left message to deliver the 5 free meals for project homecoming post hospital stay. Araceli at [facility] notified DC Plan: Home with [facility] (RN/SW) + [facility] Date Signed: 03/29/2017 02:42 PM Electronically Signed By:Shy Jolley RN
--- NOTE | 2017-03-29 15:42 | ASMTCMCOM ---
CM Note CM Note Notes: Received call from [facility] that pt's primary insurance is actually [employer] through his and Medicare is secondary so they cannot take pt. Pt's ride was here and he had to leave, CM will call pt at home with revised homecare plan. Date Signed: 03/29/2017 03:42 PM Electronically Signed By:Shy Jolley RN
--- NOTE | 2017-03-29 17:25 | ASMTCMCOM ---
CM Note CM Note Notes: CM still working on finding homecare, all homecare agencies unable to take pt, CM called pt at home to discuss next step. He will call ins to find out what homecare agency they recommend, will call CM in the morning. Araceli at [facility] will also follow for assistance. Date Signed: 03/29/2017 05:25 PM Electronically Signed By:Shy Jolley RN
--- NOTE | 2017-03-30 14:20 | ASMTCMCOM ---
CM Note CM Note Notes: Spoke w/ Patsy at pt's insurance [phone] ext [phone], clinicals sent. CM spoke w/pt re, at that time still trying to set up homecare. CM able to get hc with [facility], CM called pt but no answer and vm not taking messages. PA notified that pt unable to fill RXs yesterday. Date Signed: 03/30/2017 02:19 PM Electronically Signed By:Shy Jolley RN
--- NOTE | 2017-03-30 18:12 | ASDISCHSUM ---
Discharge Information Plan Status:Home with Home Health Medically Cleared to Leave: Discharge Date:03/29/2017 04:39 PM CM D/C Disposition:Home Health Service ADT D/C Disposition:Home, Routine, Self-Care Projected Discharge Date:03/29/2017 03:00 PM Transportation at D/C:Friend Discharge Delay Reason: Follow-Up Date:03/29/2017 03:00 PM Discharge Slot: Final Diagnosis: Placement Information Referral Type:*Home Health Care Services Referral ID:[id number] Provider Name:[facility] (formerly [facility]) Address 1[address] [place] [address] Address 2: City:[place] Selection Factors: State:[place] Patient Contact Information Contact Name:DORIS Relationship: Address:[address] [place] [address] City:[place] Alternate Phone: State/Zip Code:[place] [address] Email: Financial Information Financial Class: Primary Plan Desc:MEDICARE INPATIENT Primary Plan Number:[id number] Secondary Plan Desc:[facility] Secondary Plan Number:[id number] Assessment Information [facility] Initial CM Assessment Living Arrangements What is your living Answers: With Spouse arrangement? Who do you live with? Type Of Residence What kind of residence do Answers: House you live in? Discharge Plan Comments Coordination Status Comments Notes: Pt is a 46 y/o man admitted for chronic abdominal would cellulitis. Anticipates that pt will d/c independent when medically stable w/ supportive . No therapies ordered at this time. CM available for changes. Plan: Independent Date Signed: 03/27/2017 11:33 AM Electronically Signed By:ERIC Lama [facility] CM Progress Note CM Note CM Note Notes: Spoke w/pt, he requested community resources for food, sleep study and home care. CM gave pt Senior BB and a packet of resources through [facility]. Advised pt and I will talk to MD about sleep study and will set up home care manager for f/u at home for wound care. KARLO w/ Date Signed: 03/28/2017 05:21 PM Electronically Signed By:Shy Jolley RN [facility] KARLO Progress Note CM Note CM Note Notes: Spoke w/pt re; dc poc. Pt will dc home with [facility] homecare (RN/BALJIT). Advised pt to make appt w/th pcp regarding a sleep study eval. CM called [facility] and left message to deliver the 5 free meals for project homecoming post hospital stay. Araceli at [facility] notified DC Plan: Home with [facility] (RN/BALJIT) + [facility] Date Signed: 03/29/2017 02:42 PM Electronically Signed By:Shy Jolley RN [facility] KARLO Progress Note CM Note KARLO Note Notes: Received call from [facility] that pt's primary insurance is actually [employer] through his and Medicare is secondary so they cannot take pt. Pt's ride was here and he had to leave, CM will call pt at home with revised homecare plan. Date Signed: 03/29/2017 03:42 PM Electronically Signed By:Shy Jolley RN [facility] CM Progress Note CM Note CM Note Notes: CM still working on finding homecare, all homecare agencies unable to take pt, CM called pt at home to discuss next step. He will call ins to find out what homecare agency they recommend, will call CM in the morning. Araceli at [facility] will also follow for assistance. Date Signed: 03/29/2017 05:25 PM Electronically Signed By:Shy Jolley RN Case Management Discharge Plan Note Case Management Discharge Discharge Order Complete? Answers: Yes Patient to Obtain Answers: Independently Medications Transportation Arranged Answers: Family/Friends Faxed Final Orders Answers: Yes Family Notified Answers: Yes Discharge Comments Notes: Spoke with Apollo alvarez [facility], will to accept pt, will try to get RN to see patient on Sunday but will see Sunday for sure, Surgical MATT Calvillo notified. Date Signed: 03/30/2017 02:16 PM Electronically Signed By:Shy Jolley RN [facility] CM Progress Note CM Note CM Note Notes: Spoke w/ Patsy at pt's insurance [phone] ext [phone], clinicals sent. CM spoke w/pt re, at that time still trying to set up homecare. CM able to get hc with [facility], CM called pt but no answer and vm not taking messages. PA notified that pt unable to fill RXs yesterday. Date Signed: 03/30/2017 02:19 PM Electronically Signed By:Shy Jolley RN Intervention Information Intervention Type:*IM-Signed Date of Service:03/29/2017 02:13 PM Patient Type:Inpatient Staff Member:Sabine Nagy Hours: Discipline: Severity: Comment:
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
--- NOTE | 2017-04-10 19:05 | GOP ---
[f rep st] OPERATIVE REPORT DATE OF OPERATION: 03/26/2017 SURGEON: Jb Cadena MD WRAPPING CLERK: Dr. Wilson ANESTHESIOLOGIST: Dr. Thacker. PREOPERATIVE DIAGNOSIS: Enterocutaneous fistula. POSTOPERATIVE DIAGNOSIS: Pelvic abscess. PROCEDURE PERFORMED: FINDINGS: The patient was found to have a long fistula tract from his midline abdominal incision gabe n into the pelvis in association with some chronic mesh in his inguinal area. There was no involveme nt of the bowel, as suggested by the fistulogram x-ray. ESTIMATED BLOOD LOSS: Less than 75 cc. DESCRIPTION OF PROCEDURE: The patient was taken to the operating room, where he received satisfactor y general endotracheal anesthesia by Dr. Thacker. He was placed in supine position, prepped and joseph ped in usual sterile fashion. The fistula tract opening was probed. A vertical skin incision was ma de in the skin and fascia around the fistula tract opening. A very tedious, difficult, prolonged dis section ensued, dividing the fascia carefully away from the small bowel and dissection of this tract extended deeper and deeper into the pelvis, but never involving a loop of bowel. Bowel was carefully dissected away, and the fistula tract was followed all the way down deep below the pubic bone, and a ppeared to originate deep in the abdomen in association with some mesh in the inguinal area. As much of this as could be done, was excised and removed. The entire fistula tract was completely removed. The area was curetted of any foreign material. It was copiously irrigated. Hemostasis was assured . There were no enterotomies or bowel injury at all, or bladder involvement. The entire tract was r emoved. A quarter-inch Coral drain was brought up through the pelvis and secured at the skin edges of the incision with 3-0 nylon suture. The fascia was partially closed with #1 PDS suture, leaving the distal portion open for wound drainage. Wounds were infiltrated with 0.5% Marcaine, and the skin was closed with skin stephanie around the drain tract. He tolerated the procedure quite well. COMPLICATIONS: There were no complications. /[id number]/MODL
== END 2017-03-29 16:39 | disposition home health service (06) | DRG 358 ==
LOC: F3E 03-26 12:18
PROVIDERS: ADMIT Surgery; ATTEND Surgery
PROC: 0JB80ZZ Excision of Abdomen Subcutaneous Tissue and Fascia, Open Approach (ICD-10-PCS; principal; 2017-03-26 13:30)
DX: K63.2 Fistula of intestine (principal); K70.30 Alcoholic cirrhosis of liver without ascites; G89.29 Other chronic pain; I10 Essential (primary) hypertension; G47.33 Obstructive sleep apnea (adult) (pediatric)
CPT/HCPCS: J1100; J1170; J1335; J1885; J2001; J2250; J2405; J2704; J3010

== ENCOUNTER 2018-04-23 04:30 | Inpatient (IN) | payer OTHER ==
[2018-04-23] MEDS ORDERED: HYDROmorphONE/DILAUDID 1 MG/ML INJ ONE (04:37)
[2018-04-23] MEDS ORDERED: HYDROmorphONE/DILAUDID 1 MG/ML INJ IVP ONE (04:40)
[2018-04-23] MEDS ORDERED: NS 1,000 ML IV ONE (04:40)
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
[2018-04-23] MEDS ORDERED: HYDROmorphONE/DILAUDID 2 MG/ML INJ IVP ONE ×2 (04:57→05:45)
[2018-04-23 04:59] LABS: PLATELET COUNT 93 10^3/uL (150-400)
[2018-04-23] MEDS ORDERED: IOPAMIDOL (ISOVUE 370) 100 ML BTL IV ONE (05:03)
[2018-04-23 05:04] LABS: INR 1.31 (0.83-1.16); PROTIME(PATIENT) 16.5 SEC (12.0-15.0)
[2018-04-23] MEDS ORDERED: HYDROmorphONE/DILAUDID 1 MG/ML INJ IVP PRN ×3 (05:48→08:22)
[2018-04-23] MEDS ORDERED: ONDANSETRON 4 MG/2 ML VIAL IVP PRN (05:48)
[2018-04-23] MEDS ORDERED: ACETAMINOPHEN 325 MG TAB PO PRN (05:48)
--- NOTE | 2018-04-23 05:54 | CPEKG ---
Test Reason : OPEN Blood Pressure : / mmHG Vent. Rate : 090 BPM Atrial Rate : 039 BPM P-R Int : 165 ms QRS Dur : 096 ms QT Int : 389 ms P-R-T Axes : 050 041 036 degrees QTc Int : 476 ms Sinus rhythm Ventricular bigeminy Low voltage, extremity leads Confirmed by Jones Aguilar ([id number]) on 04/23/2018 5:53:34 AM Referred By: Confirmed By:Jones Aguialr
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
--- NOTE | 2018-04-23 09:50 | ASMTCMCOM ---
CM Note CM Note Notes: Pt is a 47 y/o man admitted for a SBO. Pt has a hx of etoh cirrhosis. Pt will most likely d/c independent when medically stable. No therapies ordered at this time. CM available for changes. Plan: Independent Date Signed: 04/23/2018 09:49 AM Electronically Signed By:ERIC Lama
[2018-04-23] MEDS: oxyCODONE IR 5 MG TAB PO PRN ×3 (10:44→19:35)
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
[2018-04-23] MEDS: HYDROmorphONE/DILAUDID 1 MG/ML INJ IVP PRN ×2 (13:19→17:58)
[2018-04-23] MEDS: NS 1,000 ML IV SCH (13:19)
[2018-04-23] MEDS: ONDANSETRON DISINTEGRATING 4 MG TAB PO PRN (15:45)
[2018-04-23] MEDS: NICOTINE 14 MG/24 HR PATCH TD SCH (16:11)
[2018-04-23] MEDS: NICOTINE POLACRILEX 2 MG GUM B PRN ×2 (16:12→22:02)
[2018-04-23] MEDS ORDERED: QUEtiapine FUMARATE 50 MG TAB PO SCH (21:00)
--- NOTE | 2018-04-23 22:14 | PDMN ---
Medical Necessity Medical necessity: Change to inpt as of 04/23/18 @ 12:55 per MD order and MCG M- 210, Intestinal Obstruction, 2 days. 47 y/o w/hx cirrhosis, mult abdominal surgeries admitted w/partial SBO (confirmed on CT scan) requiring NGT decompression, cont NPO, IVF, IV antiemetics, and IV dilaudid for pain. Est LOS> 2MN for ongoing eval/management of above.
[2018-04-24] MEDS: oxyCODONE IR 5 MG TAB PO PRN ×3 (00:33→11:47)
[2018-04-24] MEDS: HYDROmorphONE/DILAUDID 1 MG/ML INJ IVP PRN (03:28)
[2018-04-24] MEDS: NICOTINE 14 MG/24 HR PATCH TD SCH (07:33)
[2018-04-24] MEDS: ONDANSETRON DISINTEGRATING 4 MG TAB PO PRN (07:39)
[2018-04-24] MEDS: NICOTINE POLACRILEX 2 MG GUM B PRN (07:39)
[2018-04-24] MEDS: NS 1,000 ML IV SCH (07:39)
--- NOTE | 2018-04-24 11:07 | ASMTCMCOM ---
CM Note CM Note Notes: CM met w/ pt per his request. Pt reports that he is interested in getting a disability case manager in the community. CM suggested that he can get a disability case manager through his PCP's office or get a manager urgent care through his insurance. Pt reports that he feels so overwhelmed that he could kill himself. CM asked if pt had a plan and he did not. Pt reports feeling very helpless at times. CM communicated this conversation w/ Dr. Candelario and KENDRICK Santiago. Pamela will put in an order for Shy Taylor. CM provided pt w/ list of psychology today therapist that take his insurance. No other needs at this time. CM available for needs. Plan: Independent Date Signed: 04/24/2018 11:07 AM Electronically Signed By:ERIC Lama
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
[2018-04-24 12:07] VITALS: BP 121/74
--- NOTE | 2018-04-24 16:29 | GDS ---
Please see admission history and physical by Dr. Will Magana. The patient is a pleasant 47- year-old gentleman with cryptogenic cirrhosis, chronic pain, on continuous narcotics, and a history o f multiple abdominal surgeries and previous SBO, presents with nausea, vomiting. CT showed mild smal l bowel obstruction. The patient did not have sepsis. He was not tachycardic. He was maintained wi th IV fluids, IV antiemetics, and occasional IV pain medicines. He briefly had an NG tube and put ou t 400 cc, but it was uncomfortable, so he had it removed. On the first full hospital day, the patien t was anxious to be discharged. He was given a trial of clears, which he tolerated. He was discharg ed home. He was given a prescription for eight 20 mg pills of oxycodone as he took a few extras prio r to this. The patient was not drug-seeking while here. /[id number]/MODL
== END 2018-04-24 15:53 | disposition home or self-care (01) | DRG 390 ==
LOC: EDUNIT# → F3E 07:04 → OBSVTOIN 12:55
PROVIDERS: ADMIT Student in an Organized Health Care Education/Training Program; ATTEND Internal Medicine
PROC: 0D9670Z Drainage of Stomach with Drainage Device, Via Natural or Artificial Opening (ICD-10-PCS; principal; 2018-04-23)
DX: K56.600 Partial intestinal obstruction, unspecified as to cause (principal); K70.30 Alcoholic cirrhosis of liver without ascites; G89.29 Other chronic pain
CPT/HCPCS: 96374; G0480; J1170; J2405; Q9967

== ENCOUNTER → 2018-05-15 | Outpatient (CLI) | payer OTHER | LOC: FIMAGING 08:31 | PROVIDERS: ATTEND Surgery | DX: R10.11 Right upper quadrant pain (principal); K21.9 Gastro-esophageal reflux disease without esophagitis ==

== ENCOUNTER → 2018-06-07 | Outpatient (CLI) | payer OTHER | LOC: FIMAGING 08:21 | PROVIDERS: ATTEND Surgery | DX: R10.11 Right upper quadrant pain (principal) | CPT/HCPCS: 78226; A9537 ==